=== PATIENT | male | born 1980 | race Caucasian/White ===

== ENCOUNTER 2017-06-01 05:40 | Inpatient (IN) | payer BC ==
[~2017-06-01] VITALS: Ht 175.3 cm; Wt 88.5 kg
[2017-06-01 06:53] LABS: HEMOGLOBIN 16.8 gm/dl (14.0-17.5); RED BLOOD COUNT 5.27 M/UL (4.20-5.50); WHITE BLOOD COUNT 14.2 K/UL (4.5-11.0)
[2017-06-01 07:13] LABS: BUN/CREATININE RATIO 10 (0-10)
[2017-06-01 21:15] LABS: RED BLOOD COUNT 5.23 M/UL (4.20-5.50)
[2017-06-01 21:18] LABS: WHITE BLOOD COUNT 20.1 K/UL (4.5-11.0)
[2017-06-01 21:34] LABS: BUN/CREATININE RATIO 14 (0-10)
[2017-06-02 03:34] LABS: HEMOGLOBIN 16.3 gm/dl (14.0-17.5); RED BLOOD COUNT 5.19 M/UL (4.20-5.50); WHITE BLOOD COUNT 23.2 K/UL (4.5-11.0)
[2017-06-02 06:17] LABS: BUN/CREATININE RATIO 19 (0-10)
[2017-06-03 03:59] LABS: HEMOGLOBIN 14.4 gm/dl (14.0-17.5)
[2017-06-03 04:01] LABS: RED BLOOD COUNT 4.55 M/UL (4.20-5.50); WHITE BLOOD COUNT 16.3 K/UL (4.5-11.0)
[2017-06-03 04:56] LABS: BUN/CREATININE RATIO 20 (0-10)
[2017-06-04 04:21] LABS: HEMOGLOBIN 13.5 gm/dl (14.0-17.5); RED BLOOD COUNT 4.27 M/UL (4.20-5.50); WHITE BLOOD COUNT 13.8 K/UL (4.5-11.0)
[2017-06-04 04:42] LABS: BUN/CREATININE RATIO 24 (0-10)
[2017-06-05 05:21] LABS: HEMOGLOBIN 13.1 gm/dl (14.0-17.5); RED BLOOD COUNT 4.15 M/UL (4.20-5.50); WHITE BLOOD COUNT 10.7 K/UL (4.5-11.0)
[2017-06-05 05:42] LABS: BUN/CREATININE RATIO 25 (0-10)
[2017-06-05] MEDS ORDERED: ADULT LOW DOSE81 MG PO (18:58)
[2017-06-05] MEDS ORDERED: LIPITOR TAB 2020 MG PO (18:59)
[2017-06-05] MEDS ORDERED: PRINIVIL5 MG PO (19:00)
[2017-06-05] MEDS ORDERED: TOPROL XL 25 MG25 MG PO (19:02)
[2017-06-05] MEDS ORDERED: BRILINTA90 MG PO (19:03)
[2017-06-05] MEDS ORDERED: ALDACTONE 25MG25 MG PO (19:03)
[2017-06-05] MEDS ORDERED: TYLENOL325 MG PO (19:05)
[2017-06-06 05:34] LABS: HEMOGLOBIN 13.2 gm/dl (14.0-17.5); RED BLOOD COUNT 4.16 M/UL (4.20-5.50); WHITE BLOOD COUNT 8.5 K/UL (4.5-11.0)
[2017-06-06 05:53] LABS: BUN/CREATININE RATIO 28 (0-10)
== END 2017-06-06 14:03 | disposition home or self-care (01) | DRG 246 ==
LOC: ER1 05:40 → CCU 08:32 → ZEROF 08:32 → MED SURG 4 08:32 → CCU 13:05 → MED SURG 4 06-04 12:29
PROVIDERS: Internal Medicine Cardiovascular Disease; Internal Medicine Infectious Disease; Nurse Practitioner Family; ADMIT Internal Medicine
PROC: 027034Z Dilation of Coronary Artery, One Artery with Drug-eluting Intraluminal Device, Percutaneous Approach (ICD-10-PCS; principal; 2017-06-01)
PROC: 4A023N7 Measurement of Cardiac Sampling and Pressure, Left Heart, Percutaneous Approach (ICD-10-PCS; 2017-06-01)
PROC: B2111ZZ Fluoroscopy of Multiple Coronary Arteries using Low Osmolar Contrast (ICD-10-PCS; 2017-06-01)
DX: I21.4 Non-ST elevation (NSTEMI) myocardial infarction (principal); J96.01 Acute respiratory failure with hypoxia; I50.23 Acute on chronic systolic (congestive) heart failure; M62.82 Rhabdomyolysis; I42.0 Dilated cardiomyopathy; E87.1 Hypo-osmolality and hyponatremia; R04.2 Hemoptysis; R73.9 Hyperglycemia, unspecified; I95.2 Hypotension due to drugs; T50.905A Adverse effect of unspecified drugs, medicaments and biological substances, initial encounter; Y92.230 Patient room in hospital as the place of occurrence of the external cause; Z82.49 Family history of ischemic heart disease and other diseases of the circulatory system; Z87.891 Personal history of nicotine dependence
CPT/HCPCS: ECHO; 36415; 36600; 71010; 71020; 80048; 80053; 80061; 81001; 82550; 82553; 82803; 83036; 83735; 83874; 83880; 84439; 84443; 84484; 85025; 85027; 85347; 85379; 86140; 87040; 87070; 87205; 87278; 93005; 93306; 94640; 94664; 96374; 96375; 99284; C1725; C1757; C1769; C1874; C1887; C1894; C9600; J0583; J1327; J1644; J1940; J1956; J2270; J2370; J7040; Q2039; Q9963; Q9965

== ENCOUNTER → 2017-06-15 | Outpatient (CLI) | payer BC ==
[~2017-06-15] MED LIST: ADULT LOW DOSE81 MG PO; ALDACTONE 25MG25 MG PO; BRILINTA90 MG PO; LIPITOR TAB 2020 MG PO; PRINIVIL5 MG PO; TOPROL XL 25 MG25 MG PO; TYLENOL325 MG PO
[2017-06-15 10:49] LABS: BUN/CREATININE RATIO 14 (0-10)
== END ==
LOC: LAB 09:19
PROVIDERS: Internal Medicine Infectious Disease
DX: I50.23 Acute on chronic systolic (congestive) heart failure (principal)
CPT/HCPCS: 36415; 80053

== ENCOUNTER → 2021-04-29 | Outpatient (CLI) | payer BC, MEDICARE ==
[~2021-04-29] MED LIST changes: +BUMEX 1MG TABLET1 MG PO; +CALCIUM 600 +1 EA13 PO; +CELLCEPT250 MG PO; +COLCHICINE 0.60.6 MG PO; +COUMADIN2 MG PO; +COUMADIN5 MG PO; +FOLIC ACID 1 MG1 MG PO; +K-DUR TAB 20 M20 MEQ PO; +LANOXIN TAB0.125 MG PO; +LASIX20 MG PO; +LEVAQUIN500 MG PO; +LEVOFLOXACIN500 MG PO; -LIPITOR TAB 2020 MG PO; +MACROBID 100 M100 MG PO; +MAGNESIUM400 MG PO; +MUCINEX600 MG PO; +OMNICEF 300 MG300 MG PO; +PLAVIX 75 MG TA75 MG PO; +PRAVACHOL20 MG PO; +PROGRAF1 MG PO; +PROTONIX40 MG PO; +TYLENOL W/CODEIN1 E1 PO; +VITAMIN B-121000 MCG PO; +ZAROXOLYN/DIULO5 MG PO; +[UNRECOGNIZED DRUG - OTHER] IV
[2021-04-29 08:35] LABS: HEMOGLOBIN 16.5 gm/dl (14.0-17.5); RED BLOOD COUNT 5.4 M/UL (4.20-5.50); WHITE BLOOD COUNT 7.8 K/UL (4.5-11.0)
== END ==
LOC: LAB 08:06
PROVIDERS: Internal Medicine
DX: Z48.21 Encounter for aftercare following heart transplant (principal); Z94.1 Heart transplant status; Z79.899 Other long term (current) drug therapy
CPT/HCPCS: 36415; 80053; 80197; 85025

== ENCOUNTER → 2021-05-24 | Outpatient (CLI) | payer BC, MEDICARE ==
[2021-05-24 08:35] LABS: HEMOGLOBIN 15.3 gm/dl (14.0-17.5); RED BLOOD COUNT 5.02 M/UL (4.20-5.50); WHITE BLOOD COUNT 6.8 K/UL (4.5-11.0)
== END ==
LOC: LAB 08:09
PROVIDERS: Internal Medicine
DX: Z94.1 Heart transplant status (principal); Z79.899 Other long term (current) drug therapy
CPT/HCPCS: 36415; 80053; 80197; 85025